=== PATIENT | male | born 1995 ===

== ENCOUNTER 2018-11-15 14:48 | Emergency (ER) | payer SELFPAY ==
[~2018-11-15] VITALS: Ht 188 cm; Wt 90.7 kg
[2018-11-15 15:00] VITALS: BP 130/81
[2018-11-15] MEDS ORDERED: MORPHINE SULFATE 4 MG/ML DISP.SYRIN. IM ONE (15:15)
[2018-11-15] MEDS ORDERED: ONDANSETRON PF 4 MG/2 ML VIAL. ONE (15:16)
[2018-11-15] MEDS ORDERED: ONDANSETRON ODT 4 MG TAB.RAPDIS PO ONE (15:30)
--- NOTE | 2018-11-15 15:36 | PHYS DOC ---
Adult General Chief Complaint Chief Complaint: UPPER EXTREMITY INJURY HPI HPI Patient is a 23 year old right-handed male who presents with complaining of right upper extremity injury. Patient states he was at [employer] and skiing for the first time in his life and lost his balance and had a fall on right shoulder and complaining of severe pain in right shoulder with limited range of motion. Patient denies loss of consciousness or focal neuro deficit. (BERHANE REBOLLAR MD) Review of Systems Review of Systems Constitutional: Denies fever or chills [] Eyes: Denies change in visual acuity, redness, or eye pain [] HENT: Denies nasal congestion or sore throat [] Respiratory: Denies cough or shortness of breath [] Cardiovascular: No additional information not addressed in HPI [] GI: Denies abdominal pain, nausea, vomiting, bloody stools or diarrhea [] : Denies dysuria or hematuria [] Musculoskeletal: Denies back pain, reports joint pain [] Integument: Denies rash or skin lesions [] Neurologic: Denies headache, focal weakness or sensory changes [] Endocrine: Denies polyuria or polydipsia [] All other systems were reviewed and found to be within normal limits, except as documented in this note. (BERHANE REBOLLAR MD) Current Medications Current Medications Current Medications Medications (Trade) Dose Ordered Sig/Tisha Start Time Stop Time Status Last Admin Dose Admin Morphine Sulfate (Morphine 4mg Syringe) 4 mg 1X ONCE 11/15/18 15:15 11/15/18 15:20 DC 11/15/18 15:21 4 MG Ondansetron HCl (Zofran Odt) 4 mg 1X ONCE 11/15/18 15:30 11/15/18 15:31 DC Ondansetron HCl (Zofran) 4 mg STK-MED ONCE 11/15/18 15:16 11/15/18 15:17 DC (BERHANE REBOLLAR MD) Allergies Allergies Allergies Coded Allergies Type Severity Reaction Last Updated Verified No Known Drug Allergies 11/15/18 No (BERHANE REBOLLAR MD) Physical Exam Physical Exam Constitutional: Well developed, well nourished, moderate distress, non-toxic appearance. [] HENT: Normocephalic, atraumatic Eyes: PERRLA, EOMI, conjunctiva normal, no discharge. [] Neck: Normal range of motion, no tenderness, supple, no stridor. [] Cardiovascular:Heart rate regular rhythm, no murmur [] Lungs & Thorax: Bilateral breath sounds clear to auscultation [] Abdomen: Bowel sounds normal, soft, no tenderness, no masses, no pulsatile masses. [] Skin: Warm, dry, no erythema, no rash. [] Back: No tenderness, no CVA tenderness. [] Extremities: Right shoulder with deformity in distal clavicular with bulging area with tenderness, no cyanosis, no clubbing, no edema. [] Neurologic: Alert and oriented X 3, normal motor function, normal sensory function, no focal deficits noted. [] Psychologic: Affect normal, judgement normal, mood normal. [] (BERHANE REBOLLAR MD) EKG EKG [] (BERHANE REBOLLAR MD) Radiology/Procedures Radiology/Procedures [] (BERHANE REBOLLAR MD) Radiology/Procedures I interpretation x-ray Rt shoulder shows a AC separation and old clavicle fracture. See formal report when available. (SEFERINO ARIAS MD) Course & Med Decision Making Course & Med Decision Making Pertinent Imaging studies reviewed. (See chart for details) Evaluation of patient in ER showed 22 [id number] male patient with injury to right shoulder. X-rays pending. Patient care transferred to Dr. Arias at 1600. (BERHANE REBOLLAR MD) Course & Med Decision Making Impression: 1. Rt Shoulder AC separation- and Old Clavicle Fx 2. Moderate Rotator Cuff Injury Rt Patient placed in a right shoulder immobilizer. Patient to use ice packs as needed for swelling and pain relief. Patient take Tylenol and ibuprofen for discomfort. Distal neurovascular is intact after application of shoulder immobilizer. Patient to follow-up with primary care and orthopedics when he gets back home in [place]. She take shoulder out of sling 4 times a day to do passive range of motion. Patient return if any concerns. For marked discomfort may take Vicoprofen up 4 times a day. Pt. 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 Pt. is right hand dominate. (SEFERINO ARIAS MD) Dragon Disclaimer Dragon Disclaimer This electronic medical record was generated, in whole or in part, using a voice recognition dictation system. (BERHANE REBOLLAR MD) Departure Departure: Impression: Primary Impression: Right shoulder injury Referrals: NON,STAFF (PCP) Scripts Hydrocodone/Ibuprofen (HYDROCODONE-IBUPROFEN 7.5-200 ) 1 Each Tablet 1 TAB PO PRN Q6HRS PRN for PAIN, #30 TAB 0 Refills Prov: SEFERINO ARIAS MD 11/15/18 Dragon Disclaimer This chart was dictated in whole or in part using Voice Recognition software in a busy, high-work load, and often noisy Emergency Department environment. It may contain unintended and wholly unrecognized errors or omissions. (SEFERINO ARIAS MD) Discharge Summary Visit Information Final Diagnosis Problems Medical Problems: (1) AC separation Status: Acute (2) Right shoulder injury Status: Acute (3) Rotator cuff injury Status: Acute (SEFERINO ARIAS MD) Brief Hospital Course Allergies Allergies Coded Allergies Type Severity Reaction Last Updated Verified No Known Drug Allergies 11/15/18 No Vital Signs Vital Signs Date Time Temp Pulse Resp B/P (MAP) Pulse Ox O2 Delivery O2 Flow Rate FiO2 11/15/18 15:00 98.2 66 16 99 Room Air Brief Hospital Course Mr. Arias is a 23 old male who presented with Rt. AC separation and rotatory cuff tear. (SEFERINO ARIAS MD) Discharge Information Condition at Discharge: Improved, Stable Disposition/Orders: D/C to Home Dischare Medications Current Medications Morphine Sulfate (Morphine 4mg Syringe) 4 mg 1X ONCE IM Last administered on at 15:21; Start 11/15/18 at 15:15; Stop 11/15/18 at 15:20; Status DC Ondansetron HCl (Zofran Odt) 4 mg 1X ONCE PO Last administered on 11/15/18at 15: 46; Start 11/15/18 at 15:30; Stop 11/15/18 at 15:31; Status DC Ondansetron HCl (Zofran) 4 mg STK-MED ONCE .ROUTE ; Start 11/15/18 at 15:16; Stop 11/15/18 at 15:17; Status DC Ketorolac Tromethamine (Toradol Im) 60 mg 1X ONCE IM Last administered on at 18:00; Start 11/15/18 at 17:15; Stop 11/15/18 at 17:57; Status DC Ketorolac Tromethamine (Toradol Im) 60 mg STK-MED ONCE IM ; Start 11/15/18 at 17: 14; Stop 11/15/18 at 17:15; Status DC Active Scripts Active Hydrocodone-Ibuprofen 7.5-200 (Hydrocodone/Ibuprofen) 1 Each Tablet 1 Tab PO PRN Q6HRS PRN (SEFERINO ARIAS MD) Problem Qualifiers Primary Impression: Right shoulder injury Encounter type: initial encounter Qualified Codes: S49.91XA - Unspecified injury of right shoulder and upper arm, initial encounter BERHANE REBOLLAR MD Nov 15, 2018 15:36 SEFERINO ARIAS MD Nov 15, 2018 16:22
--- NOTE | 2018-11-15 16:02 | RAD ---
Examination: SHOULDER BILAT 2+V History: bilat shoulder pain with right shoulder fell on today, pt shielded Comparison/Correlation: None Findings: Two-view exam of the right shoulder and 2 view exam of the left shoulder was performed. Left acromioclavicular joint and glenohumeral joint are unremarkable. Visualized left upper thoracic and left shoulder girdle bony structures are intact. Subtle cortical thickening of the distal left clavicular shaft which may represent previous trauma is noted. Superior dislocation of the distal right clavicle in relation to the acromion by 1.8 cm noted. Glenohumeral joint relationship is unremarkable. The right bony thorax is unremarkable. Impression: Right acromioclavicular joint joint separation. Superior displacement of the right distal clavicle in relation to the acromion. Left shoulder is unremarkable. Electronically signed by: James Puga MD (11/15/2018 3:59 PM) [facility] [id number]
[2018-11-15] MEDS ORDERED: HYDR-1179 PO (17:07)
[2018-11-15] MEDS ORDERED: KETOROLAC 60 MG/2 ML VIAL. IM ONE ×2 (17:14→17:15)
== END 2018-11-15 18:00 | disposition home or self-care (01) ==
LOC: ER 14:48
DX: S43.101A Unspecified dislocation of right acromioclavicular joint, initial encounter (principal); S46.001A Unspecified injury of muscle(s) and tendon(s) of the rotator cuff of right shoulder, initial encounter; W00.0XXA Fall on same level due to ice and snow, initial encounter; Y93.23 Activity, snow (alpine) (downhill) skiing, snowboarding, sledding, tobogganing and snow tubing; Y92.89 Other specified places as the place of occurrence of the external cause; Y99.8 Other external cause status
CPT/HCPCS: 29240; 73030; 96372; 99284; J1885; J2270; Q0162